=== PATIENT | female | born 1930 | race Caucasian/White ===

== ENCOUNTER 2018-03-09 18:04 | Emergency (ER) | payer OTHER, MEDICARE ==
[~2018-03-09] VITALS: Ht 165.1 cm; Wt 68.0 kg
--- NOTE | ~2018-03-09 | EKG ---
[address] [place] [address] ELECTROCARDIOGRAM REPORT Name: CALILORIECAMILO KAPLAN Room #: [facility]P [id number] Admission: 03/09/18 Attend Phys: Discharge: 03/10/18 Date of : 32 Report #: [id number] THIS REPORT FOR: //name// [facility] ED Test Date: 2018-03-09 Test Time: 18:15:43 Pat Name: CAMILO HOOKS Department: Room: Gender: F Occupational Therapy Instructor: MZOOK : 1930 Requested By: Tiffany Melendrez Order Number: [id number] MD: Redd Redman Measurements Intervals [place] Rate: 102 P: 123 AL: 150 QRS: -38 QRSD: 162 T: 144 QT: 394 QTc: 514 Interpretive Statements Sinus tachycardia Left bundle branch block No previous ECG available for comparison Electronically Signed On 03-10-2018 10:17:42 CDT by Redd Redman [email or web address] <ELECTRONICALLY SIGNED> By: Redd Redman MD, [facility] 03/10/18 1017 1815 181 Redd Redman MD, FACC /EPI
[2018-03-09 18:20] LABS: HEMATOCRIT 39.4 % (37.0-47.0); HEMOGLOBIN 12.9 gm/dL (12.0-15.0); MCHC 32.7 g/dL (28.0-37.0); MCV 100.9 fL (80.0-100.0); PLATELET COUNT 274 thou/uL (150-400)
[2018-03-09 18:27] LABS: ANION GAP 11 mmol/L (7-16); BUN 30 mg/dL (7-18); CALCIUM 9.6 mg/dL (8.5-10.1); CHLORIDE 103 mmol/L (98-107); CO2 22 mmol/L (21-32); CREATININE 1.8 mg/dL (0.6-1.0); GLUCOSE 298 mg/dL (74-106); POTASSIUM 4.8 mmol/L (3.5-5.1); SODIUM 136 mmol/L (136-145)
[2018-03-09 18:35] LABS: TROPONIN-I <0.06 ng/mL (<0.06)
[2018-03-09 18:41] LABS: BE(vivo) -8.5 mmol/L (-2 to +3); HCO3 19.6 mmol/L (22.0-26.0); PCO2 50.9 mmHg (35.0-45.0); PO2 191.6 mmHg (80.0-100.0); pH 7.204 (7.360-7.450)
[2018-03-09] MEDS ORDERED: VERAPAMIL E.R240 M1 PO (19:00)
[2018-03-09] MEDS ORDERED: ALLOPURINOL 30300 M1 PO (19:00)
[2018-03-09] MEDS ORDERED: COREG6.25 MG PO (19:00)
[2018-03-09] MEDS ORDERED: TRIAMTERENE/HCT1 CA1 PO (19:01)
[2018-03-09] MEDS ORDERED: LISINOPRIL5 MG PO (19:01)
[2018-03-09] MEDS ORDERED: ASPIR-TRIN325 MG PO (19:03)
[2018-03-09] MEDS ORDERED: NEXIUM 40 MG CA40 M1 PO (19:04)
[2018-03-09] MEDS ORDERED: VITAMINC500 PO (19:04)
[2018-03-09] MEDS ORDERED: SLOW FE142 MG PO (19:04)
[2018-03-09 19:05] LABS: ABSOLUTE NEUTROPHILS 8.1 thou/uL (1.4-8.2); PLATELET ESTIMATE NORMAL
[2018-03-09] MEDS ORDERED: VITAMIN D1000 UNI1 PO (19:05)
[2018-03-09] MEDS ORDERED: PROBIOTIC1 EAC1 PO (19:05)
[2018-03-09] MEDS ORDERED: FLONASE 0.05%50 MCG NASAL (19:06)
[2018-03-09 19:07] LABS: ANISOCYTOSIS SLIGHT
[2018-03-09] MEDS ORDERED: TUMS PO (19:07)
[2018-03-10 00:07] VITALS: BP 131/74
== END 2018-03-10 00:08 | disposition short-term general hospital (02) ==
LOC: ER 18:04
PROVIDERS: Emergency Medicine
DX: J81.1 Chronic pulmonary edema (principal); R09.02 Hypoxemia; E87.2 Acidosis; N17.9 Acute kidney failure, unspecified; Z88.1 Allergy status to other antibiotic agents